=== PATIENT | female | born 1985 | race Hispanic/Latino ===

== ENCOUNTER 2018-06-19 16:07 | Emergency (ER) | payer BC, OTHER ==
[2018-06-19] MEDS ORDERED: DIPHENHYDRAMINE 50 MG/ML VIAL ONE (17:17)
[2018-06-19] MEDS ORDERED: NA CHLORIDE 0.9% 100 ML IV ONE (17:17)
[2018-06-19] MEDS ORDERED: NA CHLORIDE 0.9% 1,000 ML ONE (17:17)
[2018-06-19] MEDS ORDERED: METOCLOPRAMIDE 10 MG/2mL INJ ONE (17:17)
[2018-06-19] MEDS ORDERED: ONDANSETRON 4 MG/2 ML VIAL ONE (17:17)
[2018-06-19] MEDS ORDERED: KETOROLAC 30 MG/ML INJ ONE (17:17)
--- NOTE | 2018-06-19 17:22 | RAD REPORT ---
EXAM DESCRIPTION: CT - Head Brain Wo Cont - 06/19/2018 5:02 pm CLINICAL HISTORY: Headache COMPARISON: None. TECHNIQUE: Computed axial tomography of the head was obtained. IV contrast was not requested. All CT scans are performed using dose optimization technique as appropriate and may include automated exposure control or mA/KV adjustment according to patient size. FINDINGS: An intracranial bleed is not seen . The ventricles are normal in caliber. No extra-axial fluid collection is noted. Fluid within the sinuses/ mastoids is not seen. IMPRESSION: No acute intracranial abnormality is seen. If patient's symptoms persist MRI of the bra in would be recommended.
--- NOTE | 2018-06-19 18:39 | ER ---
Nurse's Notes [facility] Name: Eugenia Vergara Age: 32 yrs Sex: Female : 1985 Arrival Date: 06/19/2018 Time: 16:09 Bed 19 Private MD: Lexi Seals Diagnosis: Episodic tension-type headache Presentation: 06/19 16:23 Presenting complaint: Patient states: occipital headache started yesterday and now sv radiates to the front. c/o photophobia, n/v. Denies recent fall or head injury. Transition of care: patient was not received from another setting of care. Onset of symptoms was June 18, 2018. Care prior to arrival: None. 16:23 Method Of Arrival: Ambulatory sv 16:23 Acuity: JAMES 3 sv 17:00 Risk Assessment: Do you want to hurt yourself or someone else? Patient reports no jl7 desire to harm self or others. Initial Sepsis Screen: Does the patient meet any 2 criteria? No. Patient's initial sepsis screen is negative. Does the patient have a suspected source of infection? No. Patient's initial sepsis screen is negative. Triage Assessment: 16:23 General: Appears in no apparent distress. uncomfortable, Behavior is calm, cooperative, sv appropriate for age. Pain: Complains of pain in face and scalp Pain currently is 8 out of 10 on a pain scale. Pain began 2-3 days ago. Is continuous, Aggravated by light Also complains of nausea, photophobia. Neuro: Level of Consciousness is awake, alert, obeys commands, Oriented to person, place, time, situation, Gait is steady. Respiratory: Respiratory effort is even, unlabored, Respiratory pattern is regular, symmetrical. 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 - Social history:: Patient/guardian denies using alcohol, street drugs, The patient lives with family, Smoking status: unknown. - Family history:: not pertinent. - Ebola Screening: : No symptoms or risks identified at this time. Screenin:00 Abuse screen: Denies threats or abuse. Denies injuries from another. Nutritional jl7 screening: No deficits noted. Tuberculosis screening: No symptoms or risk factors identified. Fall Risk IV access (20 points). Assessment: 16:30 General: Appears in no apparent distress. uncomfortable, Behavior is calm, cooperative, jl7 appropriate for age. Pain: Complains of pain in PARK Pain currently is 6 out of 10 on a pain scale. Neuro: Level of Consciousness is awake, alert, obeys commands, Oriented to person, place, time, situation. Cardiovascular: Patient's skin is warm and dry. Respiratory: Airway is patent Respiratory effort is even, unlabored, Respiratory pattern is regular, symmetrical. GI: Reports nausea. : No signs and/or symptoms were reported regarding the genitourinary system. EENT: No signs and/or symptoms were reported regarding the EENT system. Derm: Skin is pink, warm \T\ dry. Musculoskeletal: No signs and/or symptoms reported regarding the musculoskeletal system. Vital Signs: 16:24 BP 123 / 80; Pulse 131; Resp 18; Temp 100.2; Pulse Ox 96% ; Weight 77.11 kg; Height 5 sv ft. 7 in. (170.18 cm); Pain 8/10; 17:42 BP 108 / 75; Pulse 109; Resp 16; Pulse Ox 100% ; Pain 8/10; jl7 19:14 BP 116 / 79; Pulse 79; Resp 16 S; Pulse Ox 100% on R/A; Pain 0/10; jl7 16:24 Body Mass Index 26.63 (77.11 kg, 170.18 cm) sv [place] Coma Score: 17:03 Eye Response: spontaneous(4). Verbal Response: oriented(5). Motor Response: obeys ma2 commands(6). Total: 15. ED Course: 16:09 Patient arrived in ED. mr 16:11 Lexi Seals is Private Physician. mr 16:24 Triage completed. sv 16:24 Arm band placed on. sv 16:31 Doug Rosas RN is Primary Nurse. jl7 16:34 Livia Self MD is Attending Physician. ma2 16:[address] via wheelchair. sj 17:01 CT completed. Patient tolerated procedure well. Patient moved back from CT. nj 17:02 CT Head Brain wo Cont In Process Unspecified. EDMS 17:20 Patient has correct armband on for positive identification. Bed in low position. Call [facility] light in reach. Warm blanket given. Pulse ox on. NIBP on. 17:20 Urine collected: clean catch specimen, cloudy. [facility] 17:30 Inserted saline lock: 20 gauge in right antecubital area, using aseptic technique. jl7 Blood collected. 19:18 No provider procedures requiring assistance completed. IV discontinued, intact, jl7 bleeding controlled, No redness/swelling at site. Pressure dressing applied. Administered Medications: 17:30 Drug: NS 0.9% 1000 ml Route: IV; Rate: 1 bolus; Site: right antecubital; jl7 18:30 Follow up: IV Status: Completed infusion jl7 17:31 Drug: TORadol 30 mg Route: IVP; Site: right antecubital; jl7 18:00 Follow up: Response: No adverse reaction; Pain is decreased jl7 17:33 Drug: Benadryl 50 mg Route: IVP; Site: right antecubital; jl7 18:00 Follow up: Response: No adverse reaction; Pain is decreased jl7 17:35 Drug: Zofran 4 mg Route: IVP; Site: right antecubital; jl7 18:00 Follow up: Response: No adverse reaction; Nausea is decreased jl7 17:41 Drug: Reglan 20 mg Route: IVP; Site: right antecubital; jl7 18:00 Follow up: Response: No adverse reaction; Pain is decreased jl7 Outcome: 18:39 Discharge ordered by . loraine 19:19 Discharged to home ambulatory. 7 19:19 Condition: stable 19:19 Discharge instructions given to patient, family, Instructed on discharge instructions, follow up and referral plans. medication usage, Demonstrated understanding of instructions, follow-up care, medications, Prescriptions given X 2. 19:20 Patient left the ED. jl7 Signatures: Dispatcher [employer] EDMS Kaelyn Smith RN RN sv Rivera, Safia Coleman, Juliette Henson, Carol Coughlin [facility] Doug Rosas RN RN jlLivia Wang MD MD ma2 Corrections: (The following items were deleted from the chart) 16:24 16:23 Acuity: JAMES 4 sv sv 16:24 16:24 PSHx: None; sv sv
--- NOTE | 2018-06-19 18:40 | EDPHYS ---
Physician Documentation [facility] Name: Eugenia Vergara Age: 32 yrs Sex: Female : 1985 Arrival Date: 06/19/2018 Time: 16:09 Bed 19 Private MD: Lexi Seals ED Physician Livia Self HPI: 06/19 17:03 This 32 yrs old Female presents to ER via Ambulatory with complaints of ma2 Headache. 17:03 The patient complains of pain to the forehead. Onset: The symptoms/episode ma2 began/occurred gradually, 2 day(s) ago. Associated signs and symptoms: Pertinent negatives: altered mental status, dizziness, fever, nausea, paresthesias, Photophobia vision changes, vomiting, weakness. Severity of symptoms: At its worst the pain was moderate, in the emergency department the pain is unchanged. Headache History: The patient has had previous headaches and this one is similar to previous episodes. The patient has experienced similar episodes in the past. 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 - Social history:: Patient/guardian denies using alcohol, street drugs, The patient lives with family, Smoking status: unknown. - Family history:: not pertinent. - Ebola Screening: : No symptoms or risks identified at this time. ROS: 17:03 Constitutional: Negative for fever, chills, and weight loss. ma2 17:03 Neuro: Positive for headache, Negative for dizziness, gait disturbance, loss of consciousness, numbness, seizure activity, syncope, near syncope, visual changes, weakness. 17:03 All other systems are negative. Exam: 17:03 Constitutional: This is a well developed, well nourished patient who is awake, alert, ma2 and in no acute distress. Head/Face: Normocephalic, atraumatic. ENT: Nares patent. No nasal discharge, no septal abnormalities noted. Tympanic membranes are normal and external auditory canals are clear. Oropharynx with no redness, swelling, or masses, exudates, or evidence of obstruction, uvula midline. Mucous membranes moist. Neck: Trachea midline, no thyromegaly or masses palpated, and no cervical lymphadenopathy. Supple, full range of motion without nuchal rigidity, or vertebral point tenderness. No Meningismus. Chest/axilla: Normal chest wall appearance and motion. Nontender with no deformity. No lesions are appreciated. Cardiovascular: Regular rate and rhythm with a normal S1 and S2. No gallops, murmurs, or rubs. Normal PMI, no JVD. No pulse deficits. Respiratory: Lungs have equal breath sounds bilaterally, clear to auscultation and percussion. No rales, rhonchi or wheezes noted. No increased work of breathing, no retractions or nasal flaring. Abdomen/GI: Soft, non-tender, with normal bowel sounds. No distension or tympany. No guarding or rebound. No evidence of tenderness throughout. Back: No spinal tenderness. No costovertebral tenderness. Full range of motion. MS/ Extremity: Pulses equal, no cyanosis. Neurovascular intact. Full, normal range of motion. Neuro: Awake and alert, GCS 15, oriented to person, place, time, and situation. Cranial nerves II-XII grossly intact. Motor strength 5/5 in all extremities. Sensory grossly intact. Cerebellar exam normal. Normal gait. Vital Signs: 16:24 BP 123 / 80; Pulse 131; Resp 18; Temp 100.2; Pulse Ox 96% ; Weight 77.11 kg; Height 5 sv ft. 7 in. (170.18 cm); Pain 8/10; 17:42 BP 108 / 75; Pulse 109; Resp 16; Pulse Ox 100% ; Pain 8/10; jl7 19:14 BP 116 / 79; Pulse 79; Resp 16 S; Pulse Ox 100% on R/A; Pain 0/10; jl7 16:24 Body Mass Index 26.63 (77.11 kg, 170.18 cm) sv [place] Coma Score: 17:03 Eye Response: spontaneous(4). Verbal Response: oriented(5). Motor Response: obeys ma2 commands(6). Total: 15. MDM: 16:35 Patient medically screened. ma2 17:03 Differential diagnosis: cluster headache, tension headache, vasomotor headache. ma2 18:38 Data reviewed: vital signs, nurses notes. Counseling: I had a detailed discussion with ma2 the patient and/or guardian regarding: the historical points, exam findings, and any diagnostic results supporting the discharge/admit diagnosis, the presence of at least one elevated blood pressure reading (>120/80) during this emergency department visit, the need for outpatient follow up. Response to treatment: the patient's symptoms have resolved after treatment. 06/19 17:36 Order name: Urine Dipstick--Ancillary (enter results) 06/19 17:36 Order name: Urine Dipstick-Ancillary EDTX 06/19 16:53 Order name: CT Head Brain wo Cont; Complete Time: 17:38 ma2 06/19 17:37 Order name: Urine --Ancillary (enter results) 06/19 16:53 Order name: Urine Dipstick-Ancillary (obtain specimen); Complete Time: 17:20 ma2 Administered Medications: 17:30 Drug: NS 0.9% 1000 ml Route: IV; Rate: 1 bolus; Site: right antecubital; jl7 18:30 Follow up: IV Status: Completed infusion jl7 17:31 Drug: TORadol 30 mg Route: IVP; Site: right antecubital; jl7 18:00 Follow up: Response: No adverse reaction; Pain is decreased jl7 17:33 Drug: Benadryl 50 mg Route: IVP; Site: right antecubital; jl7 18:00 Follow up: Response: No adverse reaction; Pain is decreased jl7 17:35 Drug: Zofran 4 mg Route: IVP; Site: right antecubital; jl7 18:00 Follow up: Response: No adverse reaction; Nausea is decreased jl7 17:41 Drug: Reglan 20 mg Route: IVP; Site: right antecubital; jl7 18:00 Follow up: Response: No adverse reaction; Pain is decreased jl7 Disposition: 06/19/18 18:39 Discharged to Home. Impression: Episodic tension-type headache. - Condition is Stable. - Discharge Instructions: Migraine Headache. - Prescriptions for Reglan 10 mg Oral Tablet - take 1 tablet by ORAL route every 6 hours take 30 minutes before meals and at bedtime; 20 tablet. Tylenol- Codeine #3 300-30 mg Oral Tablet - take 2 tablet by ORAL route every 6 hours As needed; 30 tablet. - Family Work Release, Medication Reconciliation Form, Thank You Letter, Antibiotic Education, Prescription Opioid Use form. - Follow up: Private Physician; When: Tomorrow; Reason: Recheck today's complaints, Continuance of care. Signatures: Dispatcher [employer] Kaelyn Seewll RN RN sv Leal, Jahala, RN RN jl7 Livia Self MD MD ma2 Corrections: (The following items were deleted from the chart) 16:24 16:24 PSHx: None; [facility] 19:20 18:39 06/19/2018 18:39 Discharged to Home. Impression: Episodic tension-type headache. jl7 Condition is Stable. Discharge Instructions: Migraine Headache. Prescriptions for Reglan 10 mg Oral Tablet - take 1 tablet by ORAL route every 6 hours take 30 minutes before meals and at bedtime; 20 tablet, Tylenol-Codeine #3 300-30 mg Oral Tablet - take 2 tablet by ORAL route every 6 hours As needed; 30 tablet. and Forms are Medication Reconciliation Form, Thank You Letter, Antibiotic Education, Prescription Opioid Use. Follow up: Private Physician; When: Tomorrow; Reason: Recheck today's complaints, Continuance of care. ma2
[2018-06-19 19:12] LABS: Urine Blood NEGATIVE (NEG); Urine Glucose NEGATIVE (NEG); Urine Protein 1+ (NEG); Urine pH 8.5 (5.0-7.0)
[2018-06-19 19:24] VITALS: TEMP 100.2
[2018-06-19 19:25] VITALS: O2SAT 100
[2018-06-19 19:27] VITALS: BP 116/79
== END 2018-06-19 19:20 | disposition home or self-care (01) ==
LOC: ER 16:07
DX: G44.219 Episodic tension-type headache, not intractable (principal)
CPT/HCPCS: 70450; 81003; 81025; 96361; 96374; 96375; 99284; J2405; J2765; J7030

== ENCOUNTER 2022-03-24 20:03 | Emergency (ER) | payer BC ==
--- OUTSIDE RECORDS SUMMARY | 2022-03-24 20:06 | XMS REPORT | Continuity of Care Document ---
:1985 Author Organization [facility] t Address [address] [place] [address] [place] [id number] Care Team Providers Name Role Phone SWETA Attending Clinician Unavailable SWETA Admitting Clinician Unavailable Problems This patient has no known problems. Allergies, Adverse Reactions, Alerts This patient has no known allergies or adverse reactions. Medications This patient has no known medications. Procedures This patient has no known procedures. Encounters Start End Encounter Admission Attending Care Care Encounter Source Date/Time Date/Time Type Type Clinicians Facility Department ID 2021-10-12 2021-10-12 Outpatient BJ BRENNAN [id number] 08:03:00 08:03:00 JOSE [id number] [facility] Program Results This patient has no known results.
[2022-03-24] MEDS ORDERED: LIDOCAINE 1% MPF 5 ML VIAL ONE (20:20)
[2022-03-24] MEDS ORDERED: TDAP (DIPHTH,PERTUSS(ACELL),TET VAC) 0.5 ML VIAL IMVAC ONE (20:30)
--- NOTE | 2022-03-24 20:33 | ER ---
Nurse's Notes [facility] Name: Eugenia Vergara Age: 36 yrs Sex: Female : 1985 Arrival Date: 03/24/2022 Time: 20:06 Bed 5 Private MD: Diagnosis: Laceration without foreign body of left hand Presentation: 03/24 20:09 Chief complaint: Left palm laceration from glass bottle. Bleeding controlled. hb Coronavirus screen: At this time, the client does not indicate any symptoms associated with coronavirus-19. Ebola Screen: No symptoms or risks identified at this time. Initial Sepsis Screen: Does the patient meet any 2 criteria? No. Patient's initial sepsis screen is negative. Does the patient have a suspected source of infection? No. Patient's initial sepsis screen is negative. Risk Assessment: Do you want to hurt yourself or someone else? Patient reports no desire to harm self or others. Onset of symptoms was March 24, 2022. 20:09 Method Of Arrival: Ambulatory hb 20:09 Acuity: JAMES 4 hb Historical: - Allergies: 20:12 No Known Allergies; hb - Immunization history:: Adult Immunizations unknown. - Social history:: Smoking status: unknown. Screenin:44 Abuse screen: Denies threats or abuse. Denies injuries from another. Nutritional ha1 screening: No deficits noted. Tuberculosis screening: No symptoms or risk factors identified. Assessment: 20:15 General: Appears uncomfortable, Behavior is calm, cooperative. Pain: Complains of pain ha1 in left hand and palm of left hand. Neuro: Level of Consciousness is awake, alert, obeys commands, Oriented to person, place, time, situation. Cardiovascular: Capillary refill < 3 seconds Patient's skin is warm and dry. Respiratory: Airway is patent Trachea midline Respiratory effort is even, unlabored, Respiratory pattern is regular, symmetrical. GI: No signs and/or symptoms were reported involving the gastrointestinal system. Abdomen is flat, non-distended. : No signs and/or symptoms were reported regarding the genitourinary system. Derm: Skin is pink, warm \T\ dry. Musculoskeletal: Circulation, motion, and sensation intact. Range of motion: intact in all extremities. Injury Description: Laceration sustained to palm of left hand is clean, superficial, 0.5 to 2.5 cm long, bleeding moderately. 20:53 Reassessment: Patient and/or family updated on plan of care and expected duration. Pain ha1 level reassessed. Patient is alert, oriented x 3, equal unlabored respirations, skin warm/dry/pink. Vital Signs: 20:09 BP 135 / 90; Pulse 68; Resp 16; Temp 98.3; Pulse Ox 100% on R/A; Weight 79.38 kg; hb Height 5 ft. 5 in. (165.10 cm); Pain 2/10; 20:54 BP 121 / 83; Pulse 83; Resp 18 S; Pulse Ox 99% on R/A; ha1 20:09 Body Mass Index 29.12 (79.38 kg, 165.10 cm) hb ED Course: 20:06 Patient arrived in ED. ja2 20:06 Cony Villalpando FNP-C is PHCP. kb 20:06 Kaelyn Yip MD is Attending Physician. kb 20:11 Triage completed. hb 20:12 Arm band placed on. hb 20:15 Patient has correct armband on for positive identification. Call light in reach. Side ha1 rails up X 1. Adult w/ patient. 20:23 Blaire Ruiz, RN is Primary Nurse. ha1 20:45 Assist provider with I \T\ D: Set up I\T\D tray. Performed by Cony SIDDIQI nathan 1 Dressing with 4X4s, Patient tolerated well. four stitches put in place by care provider. 20:55 Patient did not have IV access during this emergency room visit. 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 Exp: ha1 12/25/2022. Lot #: [id number]. } Route: IM; Site: left deltoid; 20:53 Follow up: Response: No adverse reaction ha1 Medication: 20:55 Vaccine Information Statement (VIS) provided today. Questions and/or concerns ha1 addressed. VIS edition date: March 24, 2022. Outcome: 20:32 Discharge ordered by . kb 20:54 Discharged to home ambulatory, with family. ha1 20:54 Condition: stable 20:54 Discharge instructions given to patient, Instructed on discharge instructions, follow up and referral plans. Demonstrated understanding of instructions, follow-up care. 20:56 Patient left the ED. ha1 Signatures: Cony Villalpando, HEAD OF SCIENCE-C HEAD OF SCIENCE-Alexandra Hurt RN RN Malissa Kruger Heidy, RN RN ha1
--- NOTE | 2022-03-24 20:33 | EDPHYS ---
Physician Documentation [facility] Name: Eugenia Vergara Age: 36 yrs Sex: Female : 1985 Arrival Date: 03/24/2022 Time: 20:06 Bed 5 Private MD: ED Physician Kaelyn Yip HPI: 03/24 20:10 This 36 yrs old Female presents to ER via Unassigned with complaints of Hand kb Injury, Finger Injury. 20:10 The patient or guardian reports injury, a laceration, clean, 2 cm(s). The complaints kb affect the palm of left hand. Context: resulted from glass bottle fell on the floor, broke and a piece of glass came up and hit hand. Onset: The symptoms/episode began/occurred just prior to arrival. Modifying factors: The symptoms are alleviated by nothing, the symptoms are aggravated by nothing. Associated signs and symptoms: The patient has no apparent associated signs or symptoms. Severity of symptoms: At their worst the symptoms were mild, in the emergency department the symptoms are unchanged. The patient has not experienced similar symptoms in the past. The patient has not recently seen a physician. Historical: - Allergies: 20:12 No Known Allergies; hb - Immunization history:: Adult Immunizations unknown. - Social history:: Smoking status: unknown. ROS: 20:10 Constitutional: Negative for fever, chills, and weight loss. kb 20:10 Skin: Positive for laceration(s), of the palm of left hand. 20:10 All other systems are negative. Exam: 20:10 Constitutional: This is a well developed, well nourished patient who is awake, alert, kb and in no acute distress. Head/Face: Normocephalic, atraumatic. ENT: Moist Mucous membranes Cardiovascular: Regular rate and rhythm with a normal S1 and S2. No gallops, murmurs, or rubs. No pulse deficits. Respiratory: Respirations even and unlabored. No increased work of breathing. Talking in full sentences Abdomen/GI: Soft, non-tender. No distention MS/ Extremity: Pulses equal, no cyanosis. Neurovascular intact. Full, normal range of motion. Neuro: Awake and alert, GCS 15, oriented to person, place, time, and situation. Moves all extremities. Normal gait. 20:10 Skin: injury, laceration(s), the wound is approximately 2 cm(s), of the palm of left hand, that can be described as clean, no foreign body, linear, without bleeding. Vital Signs: 20:09 BP 135 / 90; Pulse 68; Resp 16; Temp 98.3; Pulse Ox 100% on R/A; Weight 79.38 kg; hb Height 5 ft. 5 in. (165.10 cm); Pain 2/10; 20:54 BP 121 / 83; Pulse 83; Resp 18 S; Pulse Ox 99% on R/A; ha1 20:09 Body Mass Index 29.12 (79.38 kg, 165.10 cm) hb Laceration: 20:31 Wound Repair of 2cm ( 0.8in ) subcutaneous laceration to palm of left hand. Linear kb shaped.. Distal neuro/vascular/tendon intact. Anesthesia: Wound infiltrated with 1.5 mls of 1% lidocaine. Wound prep: Extensive cleansing with hibiclenz by me, Wound irrigation with saline by me. Skin closed with 3 5-0 Prolene using simple sutures and sterile technique. Patient tolerated well. MDM: 20:10 Patient medically screened. kb 20:10 Data reviewed: vital signs, nurses notes. Data interpreted: Pulse oximetry: on room air kb is 100 %. Interpretation: normal. 20:32 Counseling: I had a detailed discussion with the patient and/or guardian regarding: the kb historical points, exam findings, and any diagnostic results supporting the discharge/admit diagnosis, the need for outpatient follow up, a family practitioner, to return to the emergency department if symptoms worsen or persist or if there are any questions or concerns that arise at home. 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 Exp: 12/25/2022. Lot #: [id number]. } Route: IM; Site: left deltoid; 20:53 Follow up: Response: No adverse reaction ha1 Disposition: 21:01 STAFF ATTESTATION STATEMENT: I was immediately available onsite in the emergency sd2 department for consultation in the care of this patient. I did not see or examine this patient. Kaelyn Yip MD. Disposition Summary: 03/24/22 20:32 Discharge Ordered Location: Home kb Condition: Stable kb Diagnosis - Laceration without foreign body of left hand kb Followup: kb - With: Emergency Department - When: As needed - Reason: Worsening of condition Followup: kb - With: Private Physician - When: 2 - 3 days - Reason: Recheck today's complaints, Continuance of care, Re-evaluation by your physician Discharge Instructions: - Discharge Summary Sheet kb - Laceration Care, Adult, [id number]-so-Llyk kb Forms: - Medication Reconciliation Form kb - Thank You Letter kb - Antibiotic Education kb - Prescription Opioid Use kb Signatures: Cony Villalpando FNP-C FNP-Alexandra Hurt, RN RN Kaelyn Yip MD MD tn2 Blaire Ruiz RN RN ha1 Corrections: (The following items were deleted from the chart) 20:32 20:32 Laceration without foreign body of right hand kb kb
[2022-03-24 21:01] VITALS: TEMP 98.3
[2022-03-24 21:02] VITALS: BP 121/83; O2SAT 99
== END 2022-03-24 20:56 | disposition home or self-care (01) ==
LOC: ER 20:03
PROC: 0JQK0ZZ Repair Left Hand Subcutaneous Tissue and Fascia, Open Approach (ICD-10-PCS; principal; 2022-03-24)
DX: S61.412A Laceration without foreign body of left hand, initial encounter (principal); Z23 Encounter for immunization
CPT/HCPCS: 90471; 99283; 12001; J2001